=== PATIENT | male | born 1970 | race Caucasian/White ===

== ENCOUNTER 2018-07-18 10:37 | Outpatient (CLI) | payer OTHER ==
[2018-07-18 17:57] LABS: #Lymphocytes 1.6 thou/uL (1.20-3.40); #Monocytes 0.8 thou/uL (0.11-0.59); #Neutrophils 3.8 thou/uL (1.40-6.50); %Basophils 0.4 % (0.0-1.0); %Eosinophils 0.5 % (0.0-10.0); %Lymphocytes 25.1 % (21.0-51.0); %Monocytes 12.5 % (0.0-10.0); %Neutrophils 61.5 % (42.0-75.0); Mean Corpuscular HGB CONC 34.3 g/dL (32.0-36.0); Mean Corpuscular Hemoglobin 32.8 pg (27.0-31.0); Mean Corpuscular Volume 95.5 fL (78.0-98.0); Platelet Count 208 thou/uL (130-400); Red Blood Cell (RBC) Count 4.58 mill/uL (4.70-6.10); White Blood Cell (WBC) Count 6.2 thou/uL (4.8-10.8)
[2018-07-18 18:18] LABS: Anion Gap 14 mmol/L (10-20); BUN (Urea Nitrogen) 17 mg/dL (8.9-20.6); Calc. Creatinine Clearance 0 mL/min (70-130); Calcium 9.3 mg/dL (7.8-10.44); Carbon Dioxide 24 mmol/L (22-29); Chloride 105 mmol/L (98-107); Estimated GFR-MDRD Greater than 90; Glucose 92 mg/dL (70-105); Potassium 3.8 mmol/L (3.5-5.1); Sodium 139 mmol/L (136-145)
--- NOTE | 2018-07-19 23:08 | EKG ---
Test Reason : Blood Pressure : / mmHG Vent. Rate : 065 BPM Atrial Rate : 065 BPM P-R Int : 170 ms QRS Dur : 088 ms QT Int : 402 ms P-R-T Axes : 061 059 047 degrees QTc Int : 418 ms Normal sinus rhythm Normal ECG No previous ECGs available Confirmed by ANAND SIMON ([id number]) on 07/19/2018 11:08:22 PM Referred By: VERONICA Confirmed By:ANAND SIMON
== END 2018-07-18 10:38 | disposition home or self-care (01) ==
LOC: LABBT 10:37
PROVIDERS: ATTEND Orthopaedic Surgery
DX: Z01.818 Encounter for other preprocedural examination (principal); M75.121 Complete rotator cuff tear or rupture of right shoulder, not specified as traumatic
CPT/HCPCS: 80048; 85025; 93005; 93010

== ENCOUNTER 2018-07-19 10:12 | Day surgery (SDC) | payer OTHER ==
[2018-07-18 16:40] VITALS: BMI 26.3
[2018-07-19] MEDS ORDERED: Midazolam HCl 2 mg/2 ml Vial ONE (11:00)
[2018-07-19] MEDS ORDERED: Fentanyl 100 MCG/2 ML VIAL ONE ×3 (11:01→14:21)
[2018-07-19] MEDS ORDERED: Ropivacaine 0.2% 550 ML 550 ML NERVE BLCK SCH (11:57)
[2018-07-19] MEDS ORDERED: Ketorolac Tromethamine 30 MG/ML VIAL IVP PRN (11:57)
[2018-07-19] MEDS ORDERED: HYDROcodone/Acetaminophen 10/325 mg Tablet PO PRN ×2 (11:57)
[2018-07-19] MEDS ORDERED: Fentanyl 100 MCG/2 ML VIAL SLOW IVP PRN (11:57)
[2018-07-19] MEDS ORDERED: Zolpidem Tartrate 5 MG TAB PO PRN (11:57)
[2018-07-19] MEDS ORDERED: Ondansetron PF 4 MG/2 ML Vial IVP PRN (11:57)
[2018-07-19] MEDS ORDERED: Promethazine HCl 25 MG/ML VIAL IM PRN (11:57)
[2018-07-19] MEDS ORDERED: traMADol HCl 50 MG TAB PO PRN ×2 (11:57)
[2018-07-19] MEDS ORDERED: Ropivacaine 0.2% HCl/PF (40 MG/20 ML VIAL) ONE (13:31)
[2018-07-19] MEDS ORDERED: Ropivacaine 0.5% HCl/PF (150 MG/30 ML VIAL) ONE (13:31)
[2018-07-19] MEDS ORDERED: Glycopyrrolate 0.2 MG/ML 5 ML SYRINGE ONE (14:08)
[2018-07-19] MEDS ORDERED: Lidocaine 1% PF 5 ML VIAL ONE (14:08)
[2018-07-19] MEDS ORDERED: PROPOFOL 200 MG/20 ML VIAL ONE (14:08)
[2018-07-19] MEDS ORDERED: Dexamethasone 20 MG/5 ML VIAL ONE (14:08)
[2018-07-19] MEDS ORDERED: Ondansetron PF 4 MG/2 ML Vial ONE (14:08)
[2018-07-19] MEDS ORDERED: Rocuronium Bromide 10 MG/ML (10ML VIAL) ONE (14:08)
[2018-07-19] MEDS ORDERED: Ketorolac Tromethamine 30 MG/ML VIAL ONE (14:08)
--- NOTE | 2018-07-19 14:41 | OP ---
DATE OF PROCEDURE: 07/19/2018 PREOPERATIVE DIAGNOSES: Massive rotator cuff tear, right shoulder and biceps tendon dislocation. POSTOPERATIVE DIAGNOSES: Massive rotator cuff tear, right shoulder and biceps tendon dislocation. PROCEDURES PERFORMED: Open rotator cuff repair and open biceps tenodesis. DIRECTOR OF CURRICULUM AND INSTRUCTION: Artem Murphy PA-C ESTIMATED BLOOD LOSS: 200. SPECIMEN: None. DRAIN: None. COMPLICATION: None. DESCRIPTION OF PROCEDURE: The patient was taken to the operating room, where general anesthesia was induced. Placed in a beach chair position. Right arm was prepped and draped in usual sterile fashion. I opened up his old scar and extended proximally over to the acromion. The deltoid was taken down directly off the acromion with a cuff of periosteum performed anterior and inferior acromioplasty as well CA ligament been previously taken down during the previous operation. Rotator cuff tear was massive and retracted. I debrided the central portion of rotator cuff tear, identified the biceps tendon, which was dislocated from the joint. I detached the biceps from superior glenoid tubercle, measured and found it to be a size 7, repaired with FiberWire suture. I then drilled a 7 mm hole in the bicipital groove, deployed the tendon into the hole and screwed a 7 mm bio-tenodesis screw into place. I then tied the sutures over the top and about the tenodesis screw. I then repaired subscapularis back to bone using these sutures. Once the subscapularis was well anchored, I identified anterior and posterior flaps of the rotator cuff. I past the Cottony Dacron suture through these and gradually mobilized in a back and forth fashion using a blunt and sharp mobilization rotator cuff until I can get a good convergence repair. This was then repaired down to freshened up cancellous bone using a Corkscrew suture anchors anteriorly and posteriorly. I passed the sutures alternately through the Cottony Dacron on the central portion to help reinforce the closure. Tendon was repaired back to bone with 8 sutures. We could watertight repair and then reinforced with a double row technique using 2 more self punching SwiveLock devices. Deltoid was repaired back to bone using #1 Ethibond. Subcu tissues closed with 2-0 Vicryl and skin was closed with jose. Sterile dressing was applied. There were no complications. Job ID: [id number]
== END 2018-07-19 16:45 | disposition home or self-care (01) ==
LOC: SDC 10:12
PROVIDERS: ATTEND Orthopaedic Surgery
PROC: 0LQ10ZZ Repair Right Shoulder Tendon, Open Approach (ICD-10-PCS; principal; 2018-07-19)
PROC: 0LS10ZZ Reposition Right Shoulder Tendon, Open Approach (ICD-10-PCS; principal; 2018-07-19)
DX: M75.121 Complete rotator cuff tear or rupture of right shoulder, not specified as traumatic (principal); X50.1XXA Overexertion from prolonged static or awkward postures, initial encounter
CPT/HCPCS: A4306; C1713; J0690; J1100; J1885; J2001; J2250; J2405; J2704; J2795; J3010